=== PATIENT | female | born 1995 | race Caucasian/White ===

== ENCOUNTER 2017-09-06 20:46 | Emergency (ER) | payer MEDICAID, SELFPAY ==
[2017-09-06 20:47] VITALS: BP 132/109; PULSE 86; RESP 21; O2SAT 97
[2017-09-06 20:48] VITALS: PULSE 98; RESP 24; TEMP 37.1; O2SAT 100; BMI 36.8
--- NOTE | 2017-09-06 20:55 | RAD_ITS ---
STUDY: X-RAY - LEFT KNEE REASON FOR EXAM: Female, 21 years old. Pain TECHNIQUE: 4 view(s) of the knee. COMPARISON: None. FINDINGS: Normal visualized distal femur. Normal visualized proximal tibia and fibula. Normal proximal tibiofibular articulation. Normal medial femorotibial compartment. Normal lateral femorotibial compartment. Normal patellofemoral articulation. The soft tissue structures are unremarkable. RAD/Knee 4 or More Views IMPRESSION: Normal x-ray examination of the knee. Electronically Signed: Singh Cantu MD at 21:28 EST , Service support ,
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
--- NOTE | 2017-09-06 21:55 | RAD_ITS ---
STUDY: X-RAY - CERVICAL SPINE REASON FOR EXAM: Female, 21 years old. Neck pain TECHNIQUE: 3 view(s) of the cervical spine were obtained. COMPARISON: None FINDINGS: Normal anterior atlantoaxial articulation. Normal odontoid process. There is mild dextroscoliosis or torticollis secondary to muscle spasm. Normal cervical lordosis. Normal vertebral bodies and endplates. Normal disc space heights. Normal visualized intervertebral neuroforamina. The soft tissue structures are unremarkable. RAD/Cerv Spine 2 or 3 Views IMPRESSION: Minor dextroscoliosis or torticollis secondary to muscle spasm. No evidence for acute fracture Electronically Signed: Singh Cantu MD at 22:40 EST , Service support ,
[2017-09-06 22:19] VITALS: BP 130/81; PULSE 80; RESP 16; O2SAT 100
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
[2017-09-06] MEDS: Ibuprofen 400 MG Tablet 800 MG PO (22:57)
[2017-09-06] MEDS: Diphth,Pertuss(Acell),Tet Vac 0.5 ML Vial IM (22:57)
[2017-09-06 23:06] VITALS: BP 120/92; PULSE 87; RESP 18
== END 2017-09-06 23:07 | disposition home or self-care (01) ==
PROVIDERS: Emergency Provider Emergency Medicine
DX: S80.02XA Contusion of left knee, initial encounter (principal); S70.02XA Contusion of left hip, initial encounter; S16.1XXA Strain of muscle, fascia and tendon at neck level, initial encounter; V47.5XXA Car driver injured in collision with fixed or stationary object in traffic accident, initial encounter; Y93.9 Activity, unspecified; Y92.410 Unspecified street and highway as the place of occurrence of the external cause; Y99.9 Unspecified external cause status; Z23 Encounter for immunization; E66.9 Obesity, unspecified; Z72.0 Tobacco use
CPT/HCPCS: 72040; 73502; 73564; 90471; 90715; 99284

== ENCOUNTER 2018-10-06 12:31 | Emergency (ER) | payer MEDICAID, SELFPAY ==
[2018-10-06 12:32] VITALS: BP 146/86; PULSE 90; RESP 18; TEMP 36.3; O2SAT 97; BMI 37.8
== END 2018-10-06 15:05 ==
LOC: ED 14:47
PROVIDERS: Emergency Provider Emergency Medicine
DX: R11.2 Nausea with vomiting, unspecified (principal); R19.7 Diarrhea, unspecified

== ENCOUNTER 2019-12-10 21:07 | Emergency (ER) | payer SELFPAY ==
[2019-12-10 21:08] VITALS: BP 163/112; PULSE 78; RESP 24; TEMP 36.2; O2SAT 95; BMI 45.6
[2019-12-10] MEDS: 0.9% Normal Saline 1,000 ML 999 ML IV (22:00)
[2019-12-10 22:01] VITALS: O2SAT 98
[2019-12-10 22:04] VITALS: BP 142/89; PULSE 75; RESP 24; TEMP 37.4; O2SAT 98
[2019-12-10 22:09] VITALS: PULSE 93; RESP 20
--- NOTE | 2019-12-10 22:15 | RAD_ITS ---
STUDY: X-RAY CHEST REASON FOR EXAM: Female, 24 years old. SOB, COUGH, CHEST CONGESTION AND SORE THROAT TECHNIQUE: Single frontal view of the chest. COMPARISON: September 22, 2011 FINDINGS: The lungs are clear and expanded. Small left effusion. Normal size heart. Normal mediastinum and ayden. Normal visualized pulmonary arteries. Normal visualized aortic arch and descending thoracic aorta. Normal visualized thoracic spine. Normal visualized ribs, clavicles, and shoulders. There is no demonstrated abnormality of the visualized soft tissue structures of the upper abdomen. RAD/Chest 1 View (Portable) IMPRESSION: Small left effusion Electronically Signed: Gato Goodwin MD at 23:14 EDT , Service support ,
[2019-12-10 22:23] LABS: Absolute Lymphocyte Count 2.77 X10^3/uL (0.83-4.51); Absolute Neutrophil Count 5.6 X10^3/uL (2.0-7.7); Basophil# 0.09 X10^3/uL; Basophil% 0.9 % (0-1); Eosinophil# 0.61 X10^3/uL; Eosinophils% 6.1 % (0-5); Hematocrit 47.3 % (37-47); Hemoglobin 15.6 g/dL (12.0-15.0); Lymphocyte # 2.77 X10^3/ul (4.0); Lymphocyte % 27.5 % (19-41); Mean Corpuscular Hgb 28.9 pg (27.0-32.0); Mean Corpuscular Volume 87.8 fL (81-99); Mean Platelet Vol. 10.9 fl (6.2-12.0); Monocyte# 0.95 X10^3/uL; Monocyte% 9.4 % (0-10); NRBC Flagged by Analyzer 0 % (0-5); Neutrophil # 5.62 X10^3/uL (2.7-7.7); Neutrophil % 55.7 % (47-70); Platelet Count 265 K/mm3 (150-450); RBC Distribution Width CV 13.1 % (11.6-14.6); RBC Distribution Width SD 40.7 fl (35.1-43.9); Red Blood Count 5.39 M/mm3 (4.2-5.4); White Blood Count 10.1 K/mm3 (4.4-11.0)
[2019-12-10 22:35] LABS: Internal QC Validated? YES +Cl - CLEAR BKGD; Pregnancy, Serum, hCG Quali. NEGATIVE Negative
[2019-12-10 22:49] LABS: Anion Gap 6 (5-15); BUN 15 mg/dL (7-18); BUN/Creat Ratio 15.9 RATIO (10-20); Calcium,Total 9.3 mg/dL (8.5-10.1); Chloride 112 mmol/L (98-107); Creatinine, Serum 0.95 mg/dL (0.55-1.02); EST Glomerular Filtration Rate 76 mL/min (>60); Est Glom Filt Rate - Afr Amer 92 mL/min (>60); Estimated Creatinine Clearance 90.53 ml/min; Glucose 90 mg/dL (74-106); Potassium 4.1 mmol/L (3.5-5.1); Sodium Level 142 mmol/L (136-145)
[2019-12-10 23:15] VITALS: BP 132/75; PULSE 88; RESP 22; TEMP 37.1; O2SAT 97
--- NOTE | 2019-12-10 23:32 | ED.VISSUMM ---
- ER Visit Summary Date of Service: 12/10/19 Chief Complaint: Cough and shortness of breath History of Present Illness: The patient is a 24 F with no primary care physician. 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 This is a [facility]. Patient reports that she has had nasal congestion for approximately 1 week. She has a cough that began yesterday. Is productive of leung sputum without blood. She reports that she has shortness of breath that is moderate with walking and mild at rest. She has been wheezing. She does not have an inhaler that she uses. She smokes 1 pack/day. Patient denies any fever or chills. She denies any GI complaints. Physical Examination: Vitals: Stable. Afebrile. General: Well-nourished and well-developed. Head: Normocephalic atraumatic. Neck: Supple, no lymphadenopathy. No JVD. Nontender. Cardiovascular: Regular rate and rhythm. No murmurs. Respiratory: No respiratory distress. Mild wheezing bilaterally with good air movement. Abdominal: Soft, nontender, nondistended, normal bowel sounds. No guarding, rebound, or peritoneal signs. Back: Nontender. Extremities: Nontender, no edema. Skin: Normal color, no rash. Neurologic: Alert and oriented ?3. Cranial nerves II through XII are intact. Normal strength and sensation. Psych: Normal affect. Test Results: CBC shows an H&H of 15.6 and 47.3. Chem-7 shows a chloride of 112. Influenza is negative. test is negative. Chest x-ray shows a poor inspiration and no infiltrate. Emergency Department Course and Treatment: Patient was treated with an albuterol MDI. Her ambulatory pulse ox was 95% on room air. She was given prednisone and Zithromax. She was discussed with the [facility] and had a COVID test sent. Treatment Plan: Patient at this time does not require hospitalization. However, I had a prolonged discussion with her that I do suspect that she has COVID-19. She will be instructed to quarantine for 2 weeks. With her tobacco use and bronchospasm I suspect that there is also component of COPD. She will be discharged with an albuterol MDI and a 5-day burst of prednisone. She also given a prescription for Zithromax. She is instructed to return the emerge part for any worsening breathing. Disposition: To home in improved and stable condition. Impression: 1. URI. 2. Bronchospasm. 3. Suspected COVID-19 infection. This note was generated with [employer] (formerly [employer]) dictation software. It may contain incorrect words, spelling, and punctuation that were not noted in review of the chart prior to signing ED Disposition - Plan for ED Patient: Disposition: Home or Assisted Living Instructions: ED Upper Resp Infec Abx Tx Prescriptions: Prednisone [Deltasone] 40 mg PO DAILY #10 tab Prescription Printed Azithromycin [Zithromax] 250 mg PO DAILY #4 tab Prescription Printed Referrals: Noel Arciniega MD [STAFF PHYSICIAN] - 10-14 Days if not better
[2019-12-11] VITALS: BP 120/69; PULSE 83; RESP 25; O2SAT 95
[2019-12-11] MEDS: predniSONE 20 MG Tablet 40 MG PO (00:01)
[2019-12-11] MEDS: Azithromycin 250 MG Tablet 500 MG PO (00:01)
--- NOTE | 2019-12-11 19:07 | ED.RN ---
PATIENT CALLED AND MADE AWARE THAT HER COVID-19 SWAB IS NEGATIVE.
== END 2019-12-11 00:17 | disposition home or self-care (01) ==
LOC: ED 22:44
PROVIDERS: Emergency Provider Emergency Medicine
DX: J06.9 Acute upper respiratory infection, unspecified (principal); J98.01 Acute bronchospasm; F17.210 Nicotine dependence, cigarettes, uncomplicated
CPT/HCPCS: 71045; 80048; 84703; 85025; 87633; 87635; 87804; 94640; 96360; 99285; G2023; J7030; U0004